=== PATIENT | female | born 1965 | race Caucasian/White ===

== ENCOUNTER 2017-01-23 13:29 | Emergency (ER) | payer BC ==
[~2017-01-23] VITALS: Ht 157.5 cm; Wt 90.7 kg
[2017-01-23] MEDS ORDERED: LOSA50TA21 PO (13:54)
[2017-01-23] MEDS ORDERED: LEVO100T5 PO (13:54)
[2017-01-23] MEDS ORDERED: BENA25TA9 PO (13:54)
[2017-01-23] MEDS ORDERED: ESTR3TA PO (13:54)
[2017-01-23] MEDS ORDERED: ONDANSETRON 4 MG ORAL DISINTEGRATING TAB (S0181) PO ONE (15:00)
[2017-01-23] MEDS ORDERED: NORCO, ANEXSIA 5/325MG TABLET (HYDROcodone/ACETAMINOPHEN) PO ONE (15:00)
[2017-01-23 15:35] LABS: BASO % 0.4 % (0.0-1.0); EOS # 0.3 K/mm3 (0.0-0.50); LARGE UNSTAINED CELL # 0.2 K/mm3 (0.0-0.4); LARGE UNSTAINED CELL % 2.3 % (0.0-4.0); LYMPH # 2.5 K/mm3 (1.5-4.5); LYMPH % 28.7 % (24.0-44.0); MEAN CORPUSCULAR HEMOGLOBIN 31.6 pg (27.0-33.0); MEAN CORPUSCULAR HGB CONC 33.9 g/dl (32.0-36.5); MEAN CORPUSCULAR VOLUME 93.2 fl (80.0-96.0); MONO # 0.5 K/mm3 (0.0-0.8); MONO % 6.4 % (0.0-5.0); NEUTROPHILS # 4.7 K/mm3 (1.8-7.7); NEUTROPHILS % 58.2 % (36.0-66.0); PLATELET COUNT, AUTOMATED 383 k/mm3 (150-450); RED CELL DISTRIBUTION WIDTH 12.6 % (11.5-14.5); WHITE BLOOD COUNT 8.1 K/mm3 (4.0-10.0)
[2017-01-23 15:49] LABS: ANION GAP 8 MEQ/L (8-16); BLOOD UREA NITROGEN 16 MG/DL (7-18); CALCIUM LEVEL 8.9 MG/DL (8.5-10.1); CARBON DIOXIDE LEVEL 28 MEQ/L (21-32); CHLORIDE LEVEL 105 MEQ/L (98-107); CREATININE FOR GFR 0.72 MG/DL (0.55-1.02); GLOMERULAR FILTRATION RATE > 60.0 (>58); GLUCOSE, FASTING 98 MG/DL (70-105); POTASSIUM SERUM 3.9 MEQ/L (3.5-5.1); SODIUM LEVEL 141 MEQ/L (136-145)
[2017-01-23 16:48] VITALS: BP 153/75
--- NOTE | 2017-01-24 08:29 | REP ---
Left upper extremity duplex venous ultrasound: History: 5-week status post old mastectomy left arm pain. Question deep vein thrombosis. Findings: The left internal jugular, left subclavian, left axillary, left brachial, left basilic and cephalic veins are anechoic and compressible on two-dimensional scanning. Color flow and spectral Doppler interrogation is unremarkable. There is no evidence of left upper extremity venous thrombus. Impression: Negative left upper extremity duplex venous ultrasound. No evidence of venous thrombosis. Signed by Ronald Mann MD 01/24/2017 08:43 A
== END 2017-01-23 17:21 | disposition home or self-care (01) ==
LOC: M ED 14:47
DX: M79.621 Pain in right upper arm (principal); M79.622 Pain in left upper arm